=== PATIENT | female | born 1945 | race Caucasian/White ===

== ENCOUNTER 2019-08-25 14:20 | Emergency (ER) | payer OTHER ==
[~2019-08-25] VITALS: Ht 162.6 cm; Wt 61.0 kg
[2019-08-25] MEDS ORDERED: SODIUM CHLORIDE 0.9% 1,000 ML IV ONE (14:32)
[2019-08-25 14:59] LABS: BASOPHILS % 0.7 % (0.0-2.0); EOSINOPHILS % 1.6 % (0.0-5.0); HEMATOCRIT. 37.5 % (36.0-48.0); HEMOGLOBIN. 12.3 g/dL (12.0-16.0); LYMPHOCYTES % 22.6 % (20.0-50.0); MEAN CORPUSCULAR HEMOGLOBIN 27.5 pg (28.0-32.0); MEAN CORPUSCULAR VOLUME 84.1 fL (81.0-99.0); MEAN PLATELET VOLUME 8.6 fl (7.4-10.4); MONOCYTES % 5.6 % (2.0-8.0); NEUTROPHILS % 69.5 % (40.0-76.0); PLATELET 355 x1000/uL (130-400); RED BLOOD CELL COUNT 4.46 mill/uL (4.2-5.4); RED CELL DISTRIBUTION WIDTH 17.3 % (11.6-14.6)
[2019-08-25 15:08] LABS: PARTIAL THROMBOPLASTIN TIME 27.8 sec (23.4-31.0); PROTHROMBIN TIME 10.7 sec (9.6-11.0)
[2019-08-25 15:11] LABS: CHLORIDE 106 mEq/L (98-107)
[2019-08-25 15:15] LABS: ETHANOL BLOOD < 10 mg/dL
[2019-08-25 15:17] LABS: LDL CHOLESTEROL 117 mg/dL (5-100)
[2019-08-25 15:20] LABS: CREATINE KINASE 35 IU/L (26-192)
[2019-08-25] MEDS ORDERED: IOHEXOL-350 100 ML BOTTLE ONE (16:55)
[2019-08-25] MEDS ORDERED: ACETAMINOPHEN 325MG TABLET PO ONE (18:45)
[2019-08-25 19:00] VITALS: BP 142/74
== END 2019-08-25 19:21 | disposition short-term general hospital (02) ==
LOC: ER 14:20 → CANBEDREQ 21:19
DX: I61.9 Nontraumatic intracerebral hemorrhage, unspecified (principal); E86.0 Dehydration; I48.91 Unspecified atrial fibrillation; I69.398 Other sequelae of cerebral infarction; G93.89 Other specified disorders of brain
CPT/HCPCS: 36415; 70450; 70496; 70498; 70551; 71045; 80053; 80320; 82140; 82550; 82962; 83690; 83721; 84484; 85025; 85610; 85730; 93005; 96360; 96361; 99291; J7030; Q9967; G0480